=== PATIENT | female | born 1980 | race Caucasian/White ===

== ENCOUNTER → 2023-11-10 06:58 | Outpatient (REF) | payer OTHER, SELFPAY | LOC: HWWDC 06:58 | PROVIDERS: ATTENDING PHYSICIAN Obstetrics & Gynecology; FAMILY PHYSICIAN Family Medicine | DX: Z12.31 Encounter for screening mammogram for malignant neoplasm of breast (principal) | CPT/HCPCS: 77063; 77067 ==

== ENCOUNTER → 2023-11-24 13:05 | Outpatient (REF) | payer OTHER, SELFPAY | LOC: HWRAD 13:05 | PROVIDERS: ATTENDING PHYSICIAN Obstetrics & Gynecology; FAMILY PHYSICIAN Family Medicine | DX: D25.9 Leiomyoma of uterus, unspecified (principal) | CPT/HCPCS: 76830; 76856 ==

== ENCOUNTER → 2024-04-27 09:34 | Outpatient (REF) | payer OTHER, SELFPAY | LOC: HWRAD 09:34 | PROVIDERS: ATTENDING PHYSICIAN Family Medicine | DX: R31.21 Asymptomatic microscopic hematuria (principal) | CPT/HCPCS: 76770 ==

== ENCOUNTER → 2024-04-30 10:16 | Outpatient (REF) | payer OTHER, SELFPAY | LOC: RAD 10:16 | PROVIDERS: ATTENDING PHYSICIAN Family Medicine | DX: M54.9 Dorsalgia, unspecified (principal); R10.13 Epigastric pain | CPT/HCPCS: 74246 ==

== ENCOUNTER → 2024-05-03 07:01 | Outpatient (REF) | payer OTHER, SELFPAY | LOC: MRI 3T 07:01 | PROVIDERS: ATTENDING PHYSICIAN Family Medicine | DX: D30.02 Benign neoplasm of left kidney (principal) | CPT/HCPCS: 74181 ==

== ENCOUNTER 2024-06-20 14:00 | Emergency (ER) | payer OTHER, SELFPAY ==
[2024-06-20 14:02] VITALS: BP 143/70
--- NOTE | 2024-06-20 14:43 | ED.GENMED ---
History of Present Illness
General
Chief Complaint: Musculo-Skeletal Complaint
Time Seen by Provider: 06/20/24 14:43
History of Present Illness
History of Present Illness:
TIME OF INITIAL ENCOUNTER: 3 PM the discomfort is more so in the left
HPI: Patient presents with ongoing bilateral hip pain. There is been no trauma. The symptoms are more so in the lateral aspect of the left hip. She did have some symptoms regarding the other joints and reports having normal blood work evaluating
her for lupus and other conditions. She was placed on an NSAID without much improvement. She also voiced concerns about the possibly but maybe her symptoms could be related to cancer. She also thought that there was prominence to the lateral
aspect of the soft tissue at the left thigh as well as anterior and distally.
EXAM:
GENERAL: Well appearing in no distress
HEENT: Moist oral mucosa
ABDOMEN: Soft with no peritoneal signs, no tenderness
NEUROLOGIC: Excellent strength all extremities, no coordination deficits
PSYCHIATRIC: Appropriate mental status, normal insight and judgement
BACK: No midline L-spine tenderness however that she does have a small lipoma just left of midline in the lower lumbar
EXTREMITIES: I do not feel any masses to palpation of the lumbar region or to the left thigh/hip, there is no significant bony tenderness, there is no significant pain with passive range of motion into internal and external rotation at the left hip,
negative straight leg raise
SKIN: No rash, no lesions
NUMBER AND COMPLEXITY OF PROBLEMS ADDRESSED AT THE ENCOUNTER
� Chronic conditions affecting care: Anxiety/depression
� Acute Exacerbation and/or Progression of Chronic Illness: This is an acute problem
� Differential Diagnosis includes: Bursitis, tendinosis, sciatica, anxiety, osteoarthritis
AMOUNT AND/OR COMPLEXITY OF DATA TO BE REVIEWED AND ANALYZED
� I performed an independent evaluation of and my interpretation is:
EKG:
CT:
X-rays: X-ray showed no acute abnormality.
Laboratory Studies:
Other:
� Review of other/old records: I reviewed records, the patient went to the OR for missed at 8 weeks nearly 2 years ago
� Clinical information was obtained by an independent historian: None needed
� Prescriptions/Medications Considered but not given: Offered and considered Flexeril and/or steroids however the patient declines
� Further testing considered but not performed:
RISK OF COMPLICATIONS AND/OR MORBIDITY OR MORTALITY OF PATIENT MANAGEMENT
� Social determinants of health affecting care: Lives at home
� Discussion with other providers:
� Escalation of care including admission/observation vs risk of discharge considered: Unclear etiology of patient's symptoms. We talked about the possibly of a bursitis and/or sciatica. She declines any steroids citing that she
is allergic to oral steroids. She declines trying Flexeril. I suggest that she follow-up with orthopedics for their evaluation.
ANY OTHER UPDATES:
Past History
Past History
ED Past Medical History: Psychiatric (Anxiety); Negative Asthma, HTN, Hypercholesterolemia or NIDDM
ED Past Surgical History: None
Social History
Tobacco: Non-smoker
Alcohol: None
Personal:
Living: with family
Phy Exam
Physical Exam
Physical Exam:
See HPI
Course
Orders/Labs/Results
Orders:
Orders
06/20/24 14:04
CR Hips KRIS w/wo Pel 3-4 Vw Urgent
Comment:
Reason For Exam: pain
Include a pelvis x-ray?: Yes
Vital Signs
Initial and Last Documented VS:
Initial Vital Signs
Temp Pulse Resp BP Pulse Ox
36.7 C 94 20 143/70 99
06/20/24 14:02 06/20/24 14:02 06/20/24 14:02 06/20/24 14:02 06/20/24 14:02
Last Documented Vital Signs
Temp Pulse Resp BP Pulse Ox
36.7 C 94 20 143/70 99
06/20/24 14:02 06/20/24 14:02 06/20/24 14:02 06/20/24 14:02 06/20/24 14:02
*Critical Care Note
Total Time (30-74mins, 75-104mins- exclusive of procedures): Not Applicable
ED Attending Note
-
Portions of this chart may have been created with voice recognition software.� Occasional wrong word or��sound alike� substitutions may have occurred due to the inherent limitations of voice recognition software.
Discharge Plan
Departure
Patient Disposition: Home (Routine Discharge)
Date of Disposition: 06/20/24
Time of Disposition: 15:10
Patient with high blood pressure during this ER visit?: Yes
Discharge Problem:
Bursitis
Instructions: Bursitis ED, BLOOD PRESSURE
Prescriptions:
No Action
PNV cmb#95-ferrous fumarate-FA [] 1 EACH tablet
1 ea PO DAILY
doxylamine-pyridoxine (vit B6) [Diclegis] 10-10 mg Tablet,Delayed Release (Dr/Ec)
2 tab PO HS
cholecalciferol (vitamin D3) [Vitamin D3] 125 mcg (5,000 unit) Tablet
125 mcg PO DAILY
Referrals:
Saida Johnson I., [Active] - Follow up in 2-3 days
Ander Hawley, DO [Family Provider] -
Activity Restrictions/Additional Instructions:
The cause of your symptoms is unclear. Your symptoms possibly could be related to bursitis or even a degree of sciatica. X-rays of both hips are unremarkable and there is no sign of osteoarthritis or any other bony abnormality. I do not feel any
abnormality to the soft tissues. However, I do recommend that you follow-up with an orthopedist such as Dr. Johnson.
Interventions
Interventions:
*General Assessment Last Done: 06/20/24 14:02
Discharge Date and Time
Print Language: [place]
== END 2024-06-20 15:29 | disposition home or self-care (01) ==
LOC: EMR 14:00
PROVIDERS: EMERGENCY PHYSICIAN Emergency Medicine; FAMILY PHYSICIAN Family Medicine
DX: M71.9 Bursopathy, unspecified (principal); M25.552 Pain in left hip; M25.551 Pain in right hip
CPT/HCPCS: 99283; 73522

== ENCOUNTER → 2024-06-21 07:42 | Outpatient (REF) | payer OTHER, SELFPAY | LOC: HWRAD 07:42 | PROVIDERS: ATTENDING PHYSICIAN Internal Medicine Critical Care Medicine; FAMILY PHYSICIAN Family Medicine | DX: R93.89 Abnormal findings on diagnostic imaging of other specified body structures (principal); J69.0 Pneumonitis due to inhalation of food and vomit | CPT/HCPCS: 71250 ==

== ENCOUNTER → 2024-11-09 15:30 | Outpatient (REF) | payer OTHER, SELFPAY | LOC: CLAB 15:30 | PROVIDERS: ATTENDING PHYSICIAN Otolaryngology | DX: H60.543 Acute eczematoid otitis externa, bilateral (principal) | CPT/HCPCS: 87070 ==

== ENCOUNTER → 2024-11-24 07:32 | Outpatient (REF) | payer OTHER, SELFPAY | LOC: HWWDC 07:32 | PROVIDERS: ATTENDING PHYSICIAN Obstetrics & Gynecology; FAMILY PHYSICIAN Family Medicine | DX: Z12.31 Encounter for screening mammogram for malignant neoplasm of breast (principal) | CPT/HCPCS: 77063; 77067 ==

== ENCOUNTER → 2024-11-30 08:00 | Outpatient (REF) | payer OTHER, SELFPAY | LOC: RAD 08:00 | PROVIDERS: ATTENDING PHYSICIAN Family Medicine | DX: L04.0 Acute lymphadenitis of face, head and neck (principal) | CPT/HCPCS: 76536 ==

== ENCOUNTER → 2024-12-16 08:33 | Outpatient (REF) | payer OTHER, SELFPAY | LOC: WDC 08:33 | PROVIDERS: ATTENDING PHYSICIAN Obstetrics & Gynecology; REFERRING PHYSICIAN Family Medicine | DX: N63.20 Unspecified lump in the left breast, unspecified quadrant (principal); N63.13 Unspecified lump in the right breast, lower outer quadrant; N63.24 Unspecified lump in the left breast, lower inner quadrant | CPT/HCPCS: 76642 ==

== ENCOUNTER → 2024-12-27 18:28 | Outpatient (REF) | payer OTHER, SELFPAY | LOC: MRI 3T 18:28 | PROVIDERS: ATTENDING PHYSICIAN Obstetrics & Gynecology; FAMILY PHYSICIAN Family Medicine | DX: D25.9 Leiomyoma of uterus, unspecified (principal) | CPT/HCPCS: 72197; A9575 ==

== ENCOUNTER → 2025-02-22 13:50 | Outpatient (REF) | payer OTHER, SELFPAY | LOC: HWRAD 13:50 | PROVIDERS: ATTENDING PHYSICIAN Obstetrics & Gynecology; FAMILY PHYSICIAN Family Medicine | DX: D25.9 Leiomyoma of uterus, unspecified (principal) | CPT/HCPCS: 76830; 76856 ==

== ENCOUNTER → 2025-02-23 09:32 | Outpatient (REF) | payer OTHER, SELFPAY | LOC: WDC 09:32 | PROVIDERS: ATTENDING PHYSICIAN Obstetrics & Gynecology | DX: N63.20 Unspecified lump in the left breast, unspecified quadrant (principal) | CPT/HCPCS: 76642 ==

== ENCOUNTER → 2025-02-24 09:41 | Outpatient (REF) | payer OTHER, SELFPAY | LOC: MRI 3T 09:41 | PROVIDERS: ATTENDING PHYSICIAN Family Medicine; FAMILY PHYSICIAN Family Medicine | DX: G44.209 Tension-type headache, unspecified, not intractable (principal) | CPT/HCPCS: 70551 ==

== ENCOUNTER → 2025-03-28 08:15 | Outpatient (REF) | payer OTHER, SELFPAY | LOC: HWRAD 08:15 | PROVIDERS: ATTENDING PHYSICIAN Otolaryngology; FAMILY PHYSICIAN Family Medicine | DX: J32.2 Chronic ethmoidal sinusitis (principal) | CPT/HCPCS: 70486 ==

== ENCOUNTER → 2025-04-03 08:36 | Outpatient (REF) | payer OTHER, SELFPAY | LOC: MRI 3T 08:36 | PROVIDERS: ATTENDING PHYSICIAN Orthopaedic Surgery; FAMILY PHYSICIAN Family Medicine | DX: M25.559 Pain in unspecified hip (principal) | CPT/HCPCS: 73721 ==